=== PATIENT | female | born 1980 | race African-American/Black ===

== ENCOUNTER 2021-12-28 01:44 | Emergency (ER) | payer OTHER ==
[~2021-12-28] VITALS: Ht 167.6 cm; Wt 63.5 kg
--- NOTE | 2021-12-28 01:50 | NUR ---
BRENT FROM THE STREETS C/O ABDOMINAL PAIN PER PT "IM HUNGRY". PT A/OX4. TOLERATING R/A WELL WITH NO SOB.
[2021-12-28] MEDS ORDERED: DICYCLOMINE HCL 10 MG CAPSULE PO ONE ×2 (02:00→02:05)
[2021-12-28] MEDS ORDERED: LIDOCAINE VISCOUS 2% UD 15 ML UDC MM ONE (02:00)
[2021-12-28] MEDS ORDERED: MAG HYDROX/AL HYDROX/SIMETH 30 ML UDC PO ONE (02:00)
[2021-12-28] MEDS ORDERED: MAG HYDROX/AL HYDROX/SIMETH 30 ML UDC ONE (02:05)
[2021-12-28] MEDS ORDERED: LIDOCAINE VISCOUS 2% UD 15 ML UDC ONE (02:05)
--- NOTE | 2021-12-28 02:07 | NUR ---
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
--- NOTE | 2021-12-28 02:09 | NUR ---
OFERRED PT URINE CUP. PT NOT ABLE TO URINATE AT THIS TIME. WILL F/U WITH URINE SAMPLE
[2021-12-28] MEDS ORDERED: ONDA4TAB11 PO (02:15)
[2021-12-28] MEDS ORDERED: IBUP-1957 PO (02:15)
[2021-12-28] MEDS ORDERED: DICY10CA37 PO (02:15)
[2021-12-28 02:16] LABS: EOSINOPHILS % (AUTO) 1.4 % (0.0-6.0); HEMATOCRIT 25 % (33-45); HEMOGLOBIN 7.8 g/dL (11.5-14.8); LYMPHOCYTES # (AUTO) 1.8 K/uL (0.8-4.8); LYMPHOCYTES % (AUTO) 38.1 % (20.0-44.0); MEAN CORPUSCULAR HGB CONC 31 g/dl (31.0-36.0); MEAN CORPUSCULAR VOLUME 68 fL (82-100); MONOCYTES # (AUTO) 0.7 K/uL (0.1-1.30); MONOCYTES % (AUTO) 15.5 % (2.0-12.0); NEUTROPHILS # (AUTO) 2.1 K/uL (1.8-8.9); PLATELET COUNT (AUTO) 321 K/uL (150-450); RED BLOOD CELL COUNT(AUTO) 3.69 MIL/uL (4.0-5.2); WHITE BLOOD COUNT (AUTO) 4.8 K/uL (4.3-11.0)
[2021-12-28 02:28] LABS: ALBUMIN 3.4 g/dL (3.4-5.0); BILIRUBIN,DIRECT 0.1 mg/dL (0.0-0.2); BILIRUBIN,TOTAL 0.6 mg/dL (0.2-1.0); CALCIUM, SERUM 8.3 mg/dL (8.5-10.1); CREATININE 0.8 mg/dL (0.6-1.3); POTASSIUM 3.4 mmol/L (3.5-5.1)
--- NOTE | 2021-12-28 02:44 | NUR ---
OFERRED PT URINE CUP. PT NOT ABLE TO URINATE AT THIS TIME. WILL F/U WITH URINE SAMPLE
--- NOTE | 2021-12-28 03:33 | NUR ---
Patient discharged to in stable condition. Written and verbal after care instructions given. Patient verbalizes understanding of instruction but refused to sign DC paper work. PT ambulatory with a steady gait
[2021-12-28 03:34] VITALS: BP 112/81
[2021-12-28 07:17] LABS: EOSINOPHILS % (MANUAL) 1 % (0-4); LYMPHOCYTES % (MANUAL) 36 % (16-48); MONOCYTES % (MANUAL) 15 % (0-11.0); NEUTROPHILS % (MANUAL) 48 (42-76)
== END 2021-12-28 03:38 | disposition home or self-care (01) ==
LOC: ER 01:51
DX: R10.9 Unspecified abdominal pain (principal); Z79.899 Other long term (current) drug therapy; Z59.00 Homelessness unspecified
CPT/HCPCS: 36415; 80048-TC; 80076-TC; 83690-TC; 85025-TC